=== PATIENT | female | born 1985 | race Caucasian/White ===

== ENCOUNTER → 2016-10-06 | Outpatient (CLI) | payer OTHER ==
[~2016-10-06] MED LIST: DICL-201 PO; DSY/50 PO; ERGO1CAP35 PO; FRCT/ PO; JNL12021 PO; MELA1TAB48 PO; OXYC-57 PO; PROP1TAB PO; TOPI100T20 PO; VITAMIN B12 PO; VITB2100 PO
[2016-10-06 13:14] LABS: BASO % 0.5 %; BASO ABS # 0.07 K/uL (0-0.2); COMPLETE YES; EOS % 1.2 %; HEMATOCRIT 42.9 % (37-47); IG% 0.5 %; LYMPH % 26.9 %; LYMPH ABS # 3.46 K/uL (1.2-3.4); MEAN CELL VOLUME 92.1 fL (80-100); MEAN CORPUSCULAR HEMOGLOBIN 31.3 pg (25-34); MEAN PLATELET VOLUME 11.1 fL (7.4-10.4); MONO % 6.7 %; NEUT % 64.2 %; PLATELET COUNT 272 K/uL (130-400); RED BLOOD COUNT 4.66 M/uL (4.2-5.4); WHITE BLOOD COUNT 12.85 K/uL (4.8-10.8)
[2016-10-06 13:54] LABS: THYROID STIMULATING HORMONE 0.887 uIu/ml (0.300-4.500)
[2016-10-06 14:04] LABS: ESTIMATED AVERAGE GLUCOSE 105 mg/dl; HA1C FLAG Normal (Normal)
== END | disposition home or self-care (01) ==
LOC: C.LABMFLN 08:14
PROVIDERS: ATTEND Family Medicine
DX: D51.9 Vitamin B12 deficiency anemia, unspecified (principal); E55.9 Vitamin D deficiency, unspecified; R73.03 Prediabetes

== ENCOUNTER → 2016-10-10 | Outpatient (CLI) | payer OTHER | END | disposition home or self-care (01) | LOC: C.PAPS 12:03 | PROVIDERS: ATTEND Obstetrics & Gynecology | DX: Z12.4 Encounter for screening for malignant neoplasm of cervix (principal) ==

== ENCOUNTER → 2017-01-13 | Outpatient (CLI) | payer OTHER ==
[2017-01-13 13:11] LABS: BASO % 0.5 %; BASO ABS # 0.05 K/uL (0-0.2); COMPLETE YES; EOS % 1.3 %; HEMATOCRIT 42.4 % (37-47); IG% 0.4 %; LYMPH % 25.1 %; LYMPH ABS # 2.67 K/uL (1.2-3.4); MEAN CORPUSCULAR HEMOGLOBIN 30.7 pg (25-34); MEAN PLATELET VOLUME 10.5 fL (7.4-10.4); MONO % 6.8 %; NEUT % 65.9 %; PLATELET COUNT 252 K/uL (130-400); RED BLOOD COUNT 4.56 M/uL (4.2-5.4); WHITE BLOOD COUNT 10.64 K/uL (4.8-10.8)
[2017-01-13 13:20] LABS: INR 0.9 (0.9-1.1); PARTIAL THROMBOPLASTIN RATIO 1.2
[2017-01-13 13:38] LABS: BLOOD UREA NITROGEN 11 mg/dl (7-18); BUN/CREATININE RATIO 14.5 (10-20); CALCIUM 8.7 mg/dl (8.5-10.1); CARBON DIOXIDE 24 mmol/L (21-32); CHLORIDE 109 mmol/L (98-107); CREATININE 0.77 mg/dl (0.60-1.20); GLUCOSE 89 mg/dl (70-99); POTASSIUM 3.7 mmol/L (3.5-5.1); SODIUM 141 mmol/L (136-145)
== END | disposition home or self-care (01) ==
LOC: C.LABMFLN 07:10
PROVIDERS: ATTEND Orthopaedic Surgery Sports Medicine
DX: Z01.810 Encounter for preprocedural cardiovascular examination (principal)

== ENCOUNTER 2017-01-20 06:02 | Day surgery (SDC) | payer OTHER ==
[2017-01-13 15:58] VITALS: BMI 49.0
--- NOTE | 2017-01-19 20:31 | HISTORY & PHYSICAL EXAMINATION ---
DATE OF ADMISSION: 01/20/2017 SUBJECTIVE CHIEF COMPLAINT: Right foot pain. HISTORY OF PRESENT ILLNESS: This is a patient who had a right forefoot surgery performed approximately 1-2 years ago. She had persistent pain at the third metatarsal head despite having a hemiarthroplasty of the third metatarsal head. Multiple conservative managements have been attempted; however, she has failed these conservative managements. She is now being set up for surgical treatment. PAST MEDICAL HISTORY: Obesity and headaches. ALLERGIES: DOXYCYCLINE AND CODEINE. SOCIAL HISTORY: The patient denies alcohol and tobacco use. FAMILY HISTORY: Noncontributory. PAST SURGICAL HISTORY: Right foot surgery. CURRENT MEDICATIONS: Riboflavin, trazodone, Trokendi XR, butalbital/acetaminophen/caffeine as needed for headaches, levofloxacin, propranolol ER, vitamin D3 and melatonin. OBJECTIVE PHYSICAL EXAMINATION: GENERAL: The patient is alert and oriented x3. She is in no acute distress. She is a well-dressed, well-nourished 31-year-old female. Her affect is appropriate. CARDIOVASCULAR: Heart has a regular rhythm and rate without murmurs. LUNGS: Clear to auscultation bilateral. Dorsalis pedis, posterior tib pulse +2/4. Cap refill is less than 2 seconds. LYMPHATIC: No evidence of any swollen lymph nodes. MUSCULOSKELETAL: The patient has an antalgic gait favoring the right lower extremity. Upon inspection of the right lower extremity, she has well-healed surgical incisions at the dorsal aspect of the forefoot. With palpation of the right foot, she has tenderness over the third metatarsal head. There is discomfort with passive range of motion of the third toe. NEUROLOGIC: Sensation normal and intact distally, right lower extremity. X-RAY EXAM: Multiple views of the right foot demonstrate stable hardware at the second and third metatarsal heads. ASSESSMENT AND DIAGNOSES: 1. Right foot painful hardware at the third metatarsal head. 2. Metatarsalgia, third metatarsal head. PLAN: The above assessment was discussed with the patient. At this time, it was recommended the patient undergo right foot removal of the hemiarthroplasty implant from the third metatarsal head and a DuVries arthroplasty of the third metatarsal head. All potential risks, benefits, complications, alternatives and rehab have been discussed with the patient. At this time, she wishes to proceed with the surgery as indicated and she will be scheduled for the surgery on 01/20/2017.
[~2017-01-20] VITALS: Ht 162.6 cm; Wt 130.0 kg
[~2017-01-20 06:02] MED LIST changes: +CEFAZOLIN 3000 MG/65 ML D5W IV SCH; -DICL-201 PO; -JNL12021 PO; +LACTATED RINGER'S 1000ML 1,000 ML IV SCH; +LACTATED RINGER'S 1000ML 500 ML IV ONE; -OXYC-57 PO; -VITB2100 PO
[2017-01-20] MEDS ORDERED: BUPIVACAINE/EPINEPHRINE 0.25% 1:200,000 30 ML VIAL ONE (06:31)
[2017-01-20] MEDS ORDERED: DEXAMETHASONE SOD INJ 4 MG/ML VIAL ONE ×2 (06:31→07:08)
[2017-01-20] MEDS ORDERED: MIDAZOLAM HCL 1 MG/ML 2ML VIAL ONE (07:08)
[2017-01-20] MEDS ORDERED: ONDANSETRON INJ 2 MG/ML 2 ML VIAL ONE (07:08)
[2017-01-20] MEDS ORDERED: LIDOCAINE HCL 2% 2 ML VIAL (20MG/ML) ONE (07:08)
[2017-01-20] MEDS ORDERED: PROPOFOL IV EMULSION 10 MG/ML 20 ML VIAL IV ONE ×2 (07:08→09:38)
[2017-01-20] MEDS ORDERED: FENTANYL CITRATE INJ 50 MCG/1 ML 2 ML VIAL ONE ×2 (07:08→09:37)
[2017-01-20 07:15] VITALS: BP 116/72; PULSE 54; TEMP 37; O2SAT 97; Ht 162.6 cm; Wt 130.0 kg
--- NOTE | 2017-01-20 07:37 | History & Physical Bridge Note ---
H&P Re-Evaluation Bridge Note: I have examined the patient, reviewed the History & Physical and in the interval since the performance of the History & Physical I have noted the following changes of clinical significance: No changes noted
[2017-01-20] MEDS ORDERED: SCOPOLAMINE 1.5 MG TDSY TD ONE (08:21)
[2017-01-20] MEDS ORDERED: PROMETHAZINE HCL INJ 6.25 MG in SODIUM CHLORIDE 0.9% 50ML 50 ML IV PRN (09:30)
[2017-01-20] MEDS ORDERED: EpHEDrine SULFATE INJ 50 MG/ML AMP IV PRN (09:30)
[2017-01-20] MEDS ORDERED: ONDANSETRON INJ 2 MG/ML 2 ML VIAL IV PRN (09:30)
[2017-01-20] MEDS ORDERED: ATROPINE SULFATE 0.1 MG/ML 5ML SYR IV PRN (09:30)
[2017-01-20] MEDS ORDERED: SUCCINYLCHOLINE CHLORIDE 20 MG/ML 10 ML VIAL IV ONE (09:37)
[2017-01-20] MEDS ORDERED: ROCURONIUM BROMIDE 10 MG/ML 5 ML VIAL ONE (09:37)
[2017-01-20] MEDS ORDERED: OXYC-57 PO (09:59)
--- NOTE | 2017-01-20 10:00 | Discharge Instructions ---
Discharge Instructions Date of Service January 20, 2017. Admission Reason for Admission: Right Root Pain D/T Other Internal Prosthetic Karla Discharge Discharge Diagnosis / Problem: right foot pain Discharge Goals Goal(s): Decrease discomfort, Improve function Activity Recommendations Activity Limitations: per Instructions/Follow-up section Weightbearing Status: Right partial (heel WB if comfortable) . Instructions / Follow-Up Instructions / Follow-Up ACTIVITY RECOMMENDATIONS: Limitations: Heel weight bearing only if able to tolerate. SPECIAL CARE INSTRUCTIONS: * Some drainage onto the dressing is normal and is no cause for alarm. * Some swelling is natural especially after walking. * When resting, keep your foot elevated above the level of your heart. * Call [facility] if you notice: -Increased drainage -Fever over 101 degrees F -Severe constant pain BANDAGE: * Leave bandage/cast in place unless otherwise directed. * Keep bandage/cast dry at all times. PIN CARE: * Leave pins alone. * If pins come loose or fall out, notify physician. FOLLOW UP VISIT WITH DR. ROACH If appointment is not already scheduled: Please call [facility] after you get home today to schedule a follow-up appointment for [address] Roach at . Current Hospital Diet Patient's current hospital diet: Discharge Diet Recommended Diet: Regular Diet Pending Studies Studies pending at discharge: no Medical Emergencies . Who to Call and When: Medical Emergencies: If at any time you feel your situation is an emergency, please call 911 immediately. . Non-Emergent Contact Non-Emergency issues call your: Surgeon Call Non-Emergent contact if: temperature is above 101, your pain is not controlled, your pain is worsening, wound has increased drainage . "Provider Documentation" section prepared by Rowdy Porter. . VTE Core Measure Inpt VTE Proph given/why not?: Treatment not indicated
[2017-01-20] MEDS ORDERED: ARTIFICIAL TEARS OP OINT 3.5 GM TUBE ONE (10:15)
--- NOTE | 2017-01-20 10:28 | [facility] Post Operative Brief Note ---
Immediate Operative Summary Operative Date January 20, 2017. Pre-Operative Diagnosis Right Foot Painful Hardware at 3rd Metatarsal Phalangeal Joint; Metatarsalgia 3rd metatarsal head Post-Operative Diagnosis Right Foot Painful Hardware at 3rd Metatarsal Phalangeal Joint; Metatarsalgia 3rd metatarsal head Procedure(s) Performed Right Foot 3rd Metatarsal hardware removal; DuVries Arthroplasty 3rd Metatarsalphalangeal Joint Surgeon Dr. Yazan Mcdonald Professional Services Manager Surgeon(s) Rowdy Porter PA-C Estimated Blood Loss 1ml Findings See Dict Specimens A. Hardware removal of Right Foot Drains None Anesthesia Ankle block w/ LMA Complication(s) None Disposition Recovery Room / PACU
[2017-01-20] MEDS ORDERED: OXYCODONE/ACETAMINOPHEN 5-325 TAB PO PRN (10:30)
[2017-01-20] MEDS: FENTANYL CITRATE INJ 50 MCG/1 ML 2 ML VIAL IV PRN ×4 (10:45→11:00)
--- NOTE | 2017-01-20 10:58 | DIAGNOSTIC IMAGING REPORT ---
RIGHT FOOT 3 VIEWS CLINICAL HISTORY: Postoperative examination. FINDINGS: 3 portable views of the right foot are obtained. No prior studies are available for comparison at the time of dictation. The skeletal structures are well mineralized. No acute fracture is seen. An arthroplasty is noted in the second toe at the metatarsophalangeal joint. There has been osteotomy of the third metatarsal head. A pin transfixes the third toe extending from the tip of the toe to the base of the metatarsal. The joint spaces of the foot are otherwise maintained. Soft tissue edema seen throughout the foot and there are subcutaneous gas, an expected finding after surgery. IMPRESSION: 1. Soft tissue edema and postoperative change in the third toe as above. 2. No acute fracture is identified. Electronically signed by: Alec Henson M.D. 01/20/2017 10:57 AM Dictated Date/Time: 01/20/2017 10:55 AM
--- NOTE | 2017-01-20 10:58 | OPERATIVE REPORT ---
DATE OF OPERATION: 01/20/2017 PREOPERATIVE DIAGNOSES: 1. Right painful retained hardware, third metatarsophalangeal joint. 2. Metatarsalgia, third metatarsal head. POSTOPERATIVE DIAGNOSES: Same in addition to exostosis, third metatarsal head. PROCEDURE: 1. Right foot, removal third metatarsal head implant. 2. Third metatarsophalangeal joint, DuVries arthroplasty. SURGEON: Dr. Mcdonald. ALL TERRAIN VEHICLE RACER: Rowdy Porter PA-C, who was present for patient positioning, sterile prep and drape, management of retractors and instruments. He was present through the critical portions of the case including wound closure, application of sterile dressing and transport of the patient to recovery. ANESTHESIA: General LMA with popliteal block. SPECIMENS: Explanted hardware. DRAINS: None. COMPLICATIONS: None. 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 The patient had initially progressed well in the postoperative period; however, then began to have persistent pain in the third metatarsal head and despite any conservative management including shoe wear modification, activity modification, anti-inflammatories, rest, use of an orthotic device, patient continued to have pain in the third metatarsal. The patient's radiographs and CT scan demonstrating exostosis of the third metatarsal head with some degree of minor subsidence. The patient was then scheduled for surgery as indicated. All potential risks, benefits, complications, alternatives, rehab, potential for incomplete relief of symptoms, need for further surgery, DVT, PE, , persistent pain, swelling, scarring, weakness, neurovascular injury, wound complications, bone fracture were discussed with the patient. The patient decided to proceed with the procedure as indicated. DESCRIPTION OF PROCEDURE: After popliteal block was administered in the preop holding area, the patient was taken to the operative suite and placed supine on the operating room table. I reviewed the consent and identification of proper operative site, the patient was anesthetized, LMA was placed. Next, right lower extremity was then sterilely prepped and draped in usual fashion, elevated and exsanguinated with an Esmarch bandage. An Esmarch tourniquet was applied over sterile surgical towel at the level of the ankle. Next, a 15 blade scalpel was used to make an incision over the dorsum of the right foot over the third metatarsal at the site of the previous incision. This incision was deepened through the scar tissue and subcutaneous tissue to level of the third extensor tendon was then identified, freed with a 15 blade scalpel and then retracted medially. Next, the dorsal capsule of the third metatarsophalangeal joint was then incised with a 15 blade scalpel, revealing the metatarsal head implant which was then removed using impact from a mallet and bone tamp. The head was then removed from the Benítez taper of the threaded stem and then the threaded stem was then removed using a specialized screwdriver present. Next, the small curet was then used to curette the canal left after removal of the threaded post and then a rongeur was then used to resect metatarsal bone from the third metatarsal to smooth, shape and contour the distal aspect of the third metatarsal into a gentle curvature. Next, the wound was then copiously irrigated with sterile normal saline. Next, 0.045 inch K wire was driven distally through the base of the third toe extending through the tip of the third toe and then retrograde fashion, placed in live fluoroscopic assistance through the third metatarsal leaving a space of approximately 9-10 mm. Next, this pin was then bent, cut and capped. Next, the skin was then closed using 4-0 nylon suture. Sterile compressive forefoot dressing was applied after x-rays were obtained and then the tourniquet was released. The patient was awakened and taken to recovery in stable condition. I attest to the content of the Intraoperative Record and any orders documented therein. Any exceptio ns are noted below.
--- NOTE | 2017-01-20 11:08 | Anesthesiology Progress Note ---
Anesthesia Post Op Note Date & Time January 20, 2017 at 11:07 Vital Signs Pain Intensity: 6.0 Vital Signs Past 12 Hours Date Time Temp Pulse Resp B/P Pulse Ox O2 Delivery O2 Flow Rate FiO2 01/20/17 10:55 60 16 120/77 100 Diffusion Mask 10 01/20/17 10:45 16 137/94 100 Diffusion Mask 10 01/20/17 10:35 16 138/87 100 Diffusion Mask 10 01/20/17 10:27 36.3 84 16 150/97 99 Diffusion Mask 10 01/20/17 07:15 37 54 18 116/72 97 Room Air Notes Mental Status: alert / awake / arousable, participated in evaluation Pt Amnestic to Procedure: Yes Nausea / Vomiting: adequately controlled Pain: adequately controlled Airway Patency, RR, SpO2: stable & adequate BP & HR: stable & adequate Hydration State: stable & adequate Anesthetic Complications: no major complications apparent Block working well in pacu
[2017-01-20 11:30] VITALS: BP 134/91; PULSE 72; TEMP 36.9; O2SAT 99
[2017-01-20 12:00] VITALS: BP 101/71; PULSE 64; TEMP 36.8; O2SAT 98
--- NOTE | 2017-01-20 12:21 | DIAGNOSTIC IMAGING REPORT ---
INTRAOPERATIVE RADIOGRAPHS CLINICAL HISTORY: Right third toe revision. Fluoroscopy time: 2 seconds. FINDINGS 2 spot fluoroscopic views of the right forefoot are presented. An arthroplasty is noted in the second toe at the metatarsophalangeal joint. There has been osteotomy of the third metatarsal head. A pin transfixes the third toe extending from the tip of the toe to the base of the metatarsal. IMPRESSION: Intraoperative images involving the right third toe as above. Electronically signed by: Alec Henson M.D. 01/20/2017 12:20 PM Dictated Date/Time: 01/20/2017 12:19 PM
[2017-01-20 12:30] VITALS: BP 127/66; PULSE 66; TEMP 36.6; O2SAT 98
== END 2017-01-20 12:34 | disposition home or self-care (01) ==
LOC: C.ACU 06:02
PROVIDERS: ATTEND Orthopaedic Surgery Sports Medicine
DX: T84.84XA Pain due to internal orthopedic prosthetic devices, implants and grafts, initial encounter (principal); M84.871 Other disorders of continuity of bone, right ankle and foot; E78.5 Hyperlipidemia, unspecified; R73.03 Prediabetes; E66.01 Morbid (severe) obesity due to excess calories; Y79.2 Prosthetic and other implants, materials and accessory orthopedic devices associated with adverse incidents

== ENCOUNTER → 2017-03-20 | Outpatient (CLI) | payer OTHER ==
[~2017-03-20] MED LIST changes: -CEFAZOLIN 3000 MG/65 ML D5W IV SCH; -LACTATED RINGER'S 1000ML 1,000 ML IV SCH; -LACTATED RINGER'S 1000ML 500 ML IV ONE; +OXYC-57 PO
[2017-03-20 18:49] LABS: LYME DISEASE AB IGM NEG (NEG)
[2017-03-20 18:52] LABS: LYME DISEASE AB IGG NEG (NEG)
== END | disposition home or self-care (01) ==
LOC: C.LABMFLN 14:24
PROVIDERS: ATTEND Family Medicine
DX: L30.9 Dermatitis, unspecified (principal)

== ENCOUNTER → 2017-08-31 | Outpatient (CLI) | payer OTHER ==
[~2017-08-31] MED LIST changes: -OXYC-57 PO
[2017-09-04 17:38] LABS: ALBUMIN 3.5 G/DL (3.8-4.8); GAMMA GLOBULIN 1.1 G/DL (0.8-1.7); TOTAL PROTEIN 6.6 G/DL (6.2-8.3)
== END | disposition home or self-care (01) ==
LOC: C.LABMFLN 14:13
PROVIDERS: ATTEND Internal Medicine Rheumatology
DX: R70.0 Elevated erythrocyte sedimentation rate (principal); L50.8 Other urticaria

== ENCOUNTER → 2017-11-13 | Outpatient (CLI) | payer BC | END | disposition home or self-care (01) | LOC: C.PAPS 09:57 | PROVIDERS: ATTEND Obstetrics & Gynecology | DX: Z12.4 Encounter for screening for malignant neoplasm of cervix (principal) ==